=== PATIENT | female | born 1960 | race Caucasian/White ===

== ENCOUNTER 2016-11-02 12:18 | Emergency (ER) | payer OTHER ==
[~2016-11-02] VITALS: Ht 152.4 cm; Wt 89.2 kg
[2016-11-02 12:21] VITALS: Ht 152.4 cm; Wt 89.2 kg
[2016-11-02] MEDS ORDERED: KETOROLAC 30 MG INJ IM STA (15:29)
[2016-11-02] MEDS ORDERED: predniSONE 20 MG TAB PO ONE (15:30)
[2016-11-02] MEDS ORDERED: TRAM50TA2 PO (15:40)
[2016-11-02] MEDS ORDERED: NAPR-260 PO (15:40)
[2016-11-02] MEDS ORDERED: METF500T4 PO (15:41)
[2016-11-02] MEDS ORDERED: PRED20TA PO (15:41)
--- NOTE | 2016-11-02 15:51 | ERD ---
ER Documentation Chief Complaint Date/Time DATE: 11/02/16 TIME: 15:43 Chief Complaint BACK PAIN RAD TO RIGHT LEG HPI This 56-year-old female who presents to the emergency department today complaining of left-sided back pain that has been ongoing for many years but worse the past 2 weeks. Patient states she also has pain down the back of her leg. She will states that she has had some swelling in her ankle. 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 States she has taken Tylenol for the pain with limited improvement in symptoms. Patient is also requesting a medication refill on her Metformin. Denies any fevers or chills, loss of bowel or bladder control. ROS All systems reviewed and are negative except as per history of present illness. Medications Home Meds Active Scripts Metformin* (Glucophage*) 500 Mg Tab, 500 MG PO BID, #30 TAB Prov:KATERINE MCDANIEL PA-C 11/02/16 Prednisone* (Prednisone*) 20 Mg Tab, 40 MG PO DAILY for 4 Days, TAB Prov:KATERINE MCDANIEL PA-C 11/02/16 Naproxen* (Naprosyn*) 500 Mg Tablet, 500 MG PO BID Y for PAIN AND/OR INFLAMMATION, #30 TAB Prov:KATERINE MCDANIEL PA-C 11/02/16 Tramadol HCl (Tramadol HCl) 50 Mg Tablet, 50 MG PO Q4 Y for PAIN, #20 TAB Prov:KATERINE MCDANIEL PA-C 11/02/16 PMhx/Soc History of Surgery: Yes (APPY, LEFT OVARY TUMOR REMOVAL) Anesthesia Reaction: No Hx Neurological Disorder: No Hx Respiratory Disorders: No Hx Cardiac Disorders: Yes (HYPERLIPIDEMIA) Hx Psychiatric Problems: No Hx Miscellaneous Medical Probl: Yes (DM, SCIATIC NERVE PAIN ) Hx Alcohol Use: No Hx Substance Use: No Hx Tobacco Use: No Smoking Status: Never smoker Physical Exam Vitals Vital Signs Date Time Temp Pulse Resp B/P Pulse Ox O2 Delivery O2 Flow Rate FiO2 11/02/16 12:21 98.1 89 20 132/85 99 Physical Exam Const: No acute distress Head: Atraumatic Eyes: Normal Conjunctiva ENT: Normal External Ears, Nose and Mouth. Neck: Full range of motion..~ No meningismus. Resp: Clear to auscultation bilaterally Cardio: Regular rate and rhythm, no murmurs Skin: No petechiae or rashes Back: Lumbar and sacral spine midline tenderness and left-sided paraspinal tenderness. Negative straight leg raise. Pulses 2+. Distal neurovascularly intact. Ext: No cyanosis, or edema. No calf swelling or erythema or warmth. Neur: Awake and alert Psych: Normal Mood and Affect Results 24 hrs Current Medications Medications (Trade) Dose Ordered Sig/No Route PRN Reason Start Time Stop Time Status Last Admin Dose Admin Ketorolac Tromethamine (Toradol) 30 mg ONCE STAT IM 11/02/16 15:29 11/02/16 15:34 DC 11/02/16 15:42 Prednisone (Prednisone) 60 mg ONCE ONCE PO 11/02/16 15:30 11/02/16 15:34 DC 11/02/16 15:42 Procedures/MDM This is a 56-year-old female who presents to the emergency department today complaining of left-sided back pain that goes down the back of her leg. I did offer to obtain x-rays for the patient given that she has had ongoing back pain for several years that is now worse over the past 2 weeks however patient has declined at this time. Patient is afebrile and otherwise well-appearing. Low suspicion for cauda equina, abscess. Low suspicion for acute fracture dislocation. Patient symptoms at this time was consistent with back pain and sciatica. Patient did not have any calf swelling or erythema or warmth. I have low suspicion for DVT. I do not feel that she requires an ultrasound. She has no chest pain or shortness of breath and her oxygen saturation is 99%. She is not tachycardic. 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 Patient also had some tenderness along her medial tibia also likely a result of standing for long periods of time at her new job. Patient was given a Toradol injection as well as prednisone here in the emergency department. Patient does have a history of diabetes and I explained to her that the prednisone may increase her blood sugars. She has been instructed to watch her blood sugar closely. Patient did request a medication refill on her Metformin as she is running out. Patient will be given a prescription for tramadol, Naprosyn, short course of prednisone for home and a refill on her Metformin. She was instructed to elevate her limbs after work and apply ice and heat intermittently on her back. At this time the patient is stable for discharge and outpatient management. Patient should follow up with their PCP in the next 1-2 days. They may return to the emergency department sooner for any persistent or worsening of symptoms. Patient and daughter understood and agreed with the plan. Departure Diagnosis: Primary Impression: Back pain Back pain location: low back pain Chronicity: chronic Back pain laterality : left Sciatica presence: with sciatica Sciatica laterality: sciatica of left side Qualified Code: M54.42 - Chronic left-sided low back pain with left- sided sciatica Additional Impression: Medication refill Condition: Fair Patient Instructions: Taking Medicine Safely, Back Pain W/ Sciatica Referrals: your PCP Additional Instructions: Llame al doctor ZOË y ingrid armond GISELA PARA DENTRO DE 1-2 DAVIS.Dgale a la secretaria que nosotros le instruimos hacer esta gisela.Avise o llame si corral condicin se empeora antes de la gisela. Regresa aqui si peor o no mejor. Take tramadol for severe pain otherwise take Naprosyn or Tylenol or Motrin Apply ice and heat intermittently to back and hip. Elevate limbs after work Take prednisone as prescribed. Keep a close eye on blood sugar. Take metformin as prescribed and make an appoint with her primary care physician for follow-up KATERINE MCDANIEL PA-C Nov 02, 2016 15:51
== END 2016-11-02 16:13 | disposition home or self-care (01) ==
LOC: FTE 12:18
DX: M54.42 Lumbago with sciatica, left side (principal); E11.9 Type 2 diabetes mellitus without complications; Z76.0 Encounter for issue of repeat prescription; Z79.84 Long term (current) use of oral hypoglycemic drugs
CPT/HCPCS: 96372; J1885; J7512; Z7502

== ENCOUNTER 2017-02-25 09:59 | Emergency (ER) | payer OTHER ==
[~2017-02-25] VITALS: Ht 154.9 cm; Wt 82.0 kg
[~2017-02-25 09:59] MED LIST: METF500T4 PO; NAPR-260 PO; PRED20TA PO; TRAM50TA2 PO
[2017-02-25 10:02] VITALS: Ht 154.9 cm; Wt 82.0 kg
[2017-02-25] MEDS ORDERED: KETOROLAC 30 MG INJ IV STA (10:29)
[2017-02-25] MEDS ORDERED: SOD CHLORIDE 0.9% 1,000 ML IV STA (10:29)
[2017-02-25] MEDS ORDERED: ONDANSETRON 4 MG INJ IV STA (10:29)
[2017-02-25 10:51] LABS: ADD SCAN DIFF NO
[2017-02-25 11:03] LABS: BASOPHILS % 0.4 % (0.0-2.0); EOSINOPHILS # 0.1 10^3/ul (0.0-0.5); EOSINOPHILS % 1.7 % (0.0-7.0); HEMATOCRIT 43.3 % (37.0-47.0); HEMOGLOBIN 15.4 g/dl (12.0-16.0); LYMPHOCYTES # 1.7 10^3/ul (0.8-2.9); LYMPHOCYTES % 31.1 % (15.0-51.0); MEAN CORPUSCULAR HEMOGLOBIN 30.8 pg (29.0-33.0); MEAN CORPUSCULAR HGB CONC 35.6 g/dl (32.0-37.0); MEAN CORPUSCULAR VOLUME 86.6 fl (82.0-101.0); MEAN PLATELET VOLUME 10.8 fl (7.4-10.4); MONOCYTE # 0.4 10^3/ul (0.3-0.9); MONOCYTES % 7.9 % (0.0-11.0); NEUTROPHIL # 3.1 10^3/ul (1.6-7.5); NEUTROPHILS % 58.5 % (39.0-77.0); PLATELET COUNT 193 10^3/UL (140-415); RED CELL DISTRIBUTION WIDTH 11.9 % (11.5-14.5); WHITE BLOOD COUNT 5.3 10^3/ul (4.8-10.8)
[2017-02-25 11:11] LABS: ALBUMIN 4.7 g/dl (3.3-4.9); ALBUMIN/GLOBULIN RATIO 1.42; BILIRUBIN,INDIRECT 0.4 mg/dl (0-1.1); BILIRUBIN,TOTAL 0.4 mg/dl (0.2-1.3); CALCIUM 9.6 mg/dl (8.4-10.2); CREATININE 0.5 mg/dl (0.44-1.00); POTASSIUM 4.6 mmol/L (3.5-5.1)
[2017-02-25] MEDS ORDERED: INSULIN LISPRO 100 UNIT/ML VIAL SC STA (11:14)
--- NOTE | 2017-02-25 11:24 | RADRPT ---
PROCEDURE: CT Abdomen and Pelvis without contrast. CLINICAL INDICATION: Abdominal pain TECHNIQUE: CT scan of the abdomen and pelvis without contrast was performed on a multidetector hig h-resolution CT scanner. The patient was scanned without intravenous contrast. Coronal and sagittal reformatted images were obtained from the axial source images. Images were reviewed on a high-resol [employer] PACS workstation. The total exam CTDI equals 19.26 mGy and the total exam DLP equals 1051.96 m Gy-cm. One or more of the following dose reduction techniques were used: Automated exposure control. Adjustment of the mA and/or kV according to patient size. Use of iterative reconstruction technique. COMPARISON: None FINDINGS: CT abdomen: The lung bases are clear. The heart size is normal, without pericardial thickening or effusion. Th e liver is normal in size and density without focal mass or intrahepatic biliary dilatation. The sp naresh is normal in size and homogeneous in density. The stomach is partially collapsed, but is gross ly unremarkable. The pancreas as visualized is normal. The gallbladder is unremarkable. There is n o evidence for biliary dilatation. The adrenal glands are symmetric and normal. The kidneys are normal in size with no hydronephrosis. There is no urolithiasis. There is approxi mately 2.5 cm partially exophytic structure off of the lower pole left kidney. The aorta is of normal caliber. There is no retroperitoneal lymphadenopathy. The jacky hepatis robi on is clear. There are scattered diverticula in the descending and sigmoid colon. CT pelvis: The small bowel loops situated within the pelvis are unremarkable. The pelvic organs are normal. T he pelvic sidewalls and inguinal regions are clear. The sigmoid colon and rectum are remarkable for mild sigmoid diverticulosis. No mass, lymphadenopathy, or free fluid is seen. No acute inflammati on is seen. The surrounding osseous structures are remarkable for degenerative spondylosis of the s pine. No osteolytic or osteoblastic lesion is detected. IMPRESSION: 1. Approximately 2.5 cm solid lesion versus lobulation of the lower pole left kidney. Recommend CT abdomen with contrast per renal mass protocol for further evaluation. 2. Scattered diverticula in the descending and sigmoid colon without evidence of acute diverticulit is. RPTAT: BB .Jihan Le MD, MD Date Time Electronically viewed and signed by .Jihan Le MD, MD on 02/25/2017 11:24 .O/
[2017-02-25 11:25] LABS: ADD UMIC NO; UR ASCORBIC ACID NEGATIVE (NEGATIVE); UR BILIRUBIN (Dip) NEGATIVE (NEGATIVE); UR BLOOD (Dip) NEGATIVE (NEGATIVE); UR CLARITY CLEAR (CLEAR); UR COLOR STRAW (YELLOW); UR GLUCOSE (Dip) 3+ mg/dL (NEGATIVE); UR KETONES (Dip) NEGATIVE (NEGATIVE); UR LEUKOCYTE ESTERASE (Dip) NEGATIVE Leu/ul (NEGATIVE); UR NITRITE (Dip) NEGATIVE (NEGATIVE); UR SPECIFIC GRAVITY (Dip) 1.031 (1.003-1.030); UR TOTAL PROTEIN (Dip) NEGATIVE (NEGATIVE); UR UROBILINOGEN (Dip) NEGATIVE (NEGATIVE)
--- NOTE | 2017-02-25 13:38 | RADRPT ---
PROCEDURE: US Pelvis CLINICAL INDICATION: Pelvic pain. TECHNIQUE: Transabdominal and transvaginal sonographic evaluation of the pelvis was performed. COMPARISON: CT, 02/25/2017. FINDINGS: Myometrium is heterogeneous in echotexture with an anterior intramural uterine body fibroid measurin g up to 2.4 cm. Endometrium is normal in thickness without a focal abnormality. Normal flow to both ovaries. No adnexal mass. No free pelvic fluid. MEASUREMENTS: Uterus: 7.1 x 4.1 x 5.2 cm, anteverted. Endometrium: 0.3 cm. Right ovary size: 2.6 x 1.3 x 2.1 cm Left ovary size: 3.1 x 1.7 x 1.6 cm IMPRESSION: 1. Heterogeneous uterus with a single intramural uterine body fibroid identified. 2. Bilateral ovaries are within normal limits. RPTAT: EE .Dariel Montes De Oca MD, Date Time Electronically viewed and signed by .Dariel Montes De Oca MD, on 02/25/2017 13:42 .C/
[2017-02-25] MEDS ORDERED: IBUP-1542 PO (14:00)
--- NOTE | 2017-02-25 14:28 | ERD ---
ER Documentation Chief Complaint Date/Time DATE: 02/25/17 TIME: 14:21 Chief Complaint LOWER BACK PAIN RADAITING TO PELVIC AREA X 1 WEEK HPI This is a 56-year-old female presents to the ER with left-sided lower back pain that radiates into her pelvic area. Patient does admit to pain with urination however denies urinary frequency. Patient denies hematuria. She does admit to some nausea however denies vomiting or diarrhea. Pain is described as throbbing in quality is intermittent. Patient denies any fevers or chills. She denies any recent travel and there are no sick contacts at home. Patient is not currently sexually active and denies any vaginal discharge. Patient denies any urinary incontinence or bowel incontinence. She denies any saddle like anesthesia. Patient denies any trauma. ROS 12 point review of systems was done, all negative except per HPI. Medications Home Meds Active Scripts Ibuprofen* (Motrin*) 600 Mg Tab, 600 MG PO Q6, #30 TAB Prov:MERY PHELPS 02/25/17 Metformin* (Glucophage*) 500 Mg Tab, 500 MG PO BID, #30 TAB Prov:KATERINE MCDANIEL PA-C 11/02/16 Prednisone* (Prednisone*) 20 Mg Tab, 40 MG PO DAILY for 4 Days, TAB Prov:KATERINE MCDANIEL PA-C 11/02/16 Naproxen* (Naprosyn*) 500 Mg Tablet, 500 MG PO BID Y for PAIN AND/OR INFLAMMATION, #30 TAB Prov:KATERINE MCDANIEL PA-C 11/02/16 Tramadol HCl (Tramadol HCl) 50 Mg Tablet, 50 MG PO Q4 Y for PAIN, #20 TAB Prov:KATERINE MCDANIEL PA-C 11/02/16 PMhx/Soc History of Surgery: Yes (APPY, LEFT OVARY TUMOR REMOVAL) Anesthesia Reaction: No Hx Neurological Disorder: No Hx Respiratory Disorders: No Hx Cardiac Disorders: Yes (HYPERLIPIDEMIA) Hx Psychiatric Problems: No Hx Miscellaneous Medical Probl: Yes (DM, SCIATIC NERVE PAIN ) Hx Alcohol Use: No Hx Substance Use: No Hx Tobacco Use: No Physical Exam Vitals Physical Exam GENERAL: The patient is well developed and appropriate for usual state of health , in no apparent distress. HEENT: Atraumatic. CHEST: Clear to auscultation bilaterally. There are no rales, wheezes or rhonchi. HEART: Regular rate and rhythm. No murmurs, clicks, rubs or gallops. ABDOMEN: Soft, nontender and nondistended. Good bowel sounds. No rebound or guarding. No gross peritonitis. No gross organomegaly or masses. No Centeno sign or McBurney point tenderness. Patient has pelvic tenderness. BACK: No midline or flank tenderness. EXTREMITIES: Normal range of motion to bilateral lower extremities, neurovascularly intact NEURO: Alert and oriented. SKIN: There is no apparent rash or petechia. The skin is warm and dry. Results 24 hrs Laboratory Tests Test 02/25/17 10:40 White Blood Count 5.310^3/ul Red Blood Count 5.0010^6/ul Hemoglobin 15.4g/dl Hematocrit 43.3% Mean Corpuscular Volume 86.6fl Mean Corpuscular Hemoglobin 30.8pg Mean Corpuscular Hemoglobin Concent 35.6g/dl Red Cell Distribution Width 11.9% Platelet Count 01886^3/UL Mean Platelet Volume 10.8fl Neutrophils % 58.5% Lymphocytes % 31.1% Monocytes % 7.9% Eosinophils % 1.7% Basophils % 0.4% Nucleated Red Blood Cells % 0.0/100WBC Neutrophils # 3.110^3/ul Lymphocytes # 1.710^3/ul Monocytes # 0.410^3/ul Eosinophils # 0.110^3/ul Basophils # 0.010^3/ul Nucleated Red Blood Cells # 0.010^3/ul Urine Color STRAW Urine Clarity CLEAR Urine pH 5.0 Urine Specific [place] 1.031 Urine Ketones NEGATIVEmg/dL Urine Nitrite NEGATIVEmg/dL Urine Bilirubin NEGATIVEmg/dL Urine Urobilinogen NEGATIVEmg/dL Urine Leukocyte Esterase NEGATIVELeu/ul Urine Hemoglobin NEGATIVEmg/dL Urine Glucose 3+mg/dL Urine Total Protein NEGATIVEmg/dl Sodium Level 134mmol/L Potassium Level 4.6mmol/L Chloride Level 97mmol/L Carbon Dioxide Level 28mmol/L Anion Gap 14 Blood Urea Nitrogen 13mg/dl Creatinine 0.50mg/dl Glucose Level 466mg/dl Calcium Level 9.6mg/dl Total Bilirubin 0.4mg/dl Direct Bilirubin 0.00mg/dl Indirect Bilirubin 0.4mg/dl Aspartate Amino Transf (AST/SGOT) 28IU/L Alanine Aminotransferase (ALT/SGPT) 38IU/L Alkaline Phosphatase 219IU/L Total Protein 8.0g/dl Albumin 4.7g/dl Globulin 3.30g/dl Albumin/Globulin Ratio 1.42 Lipase 332U/L Current Medications Medications (Trade) Dose Ordered Sig/No Route PRN Reason Start Time Stop Time Status Last Admin Dose Admin Sodium Chloride (NS) 1,000 ml @ 1,000 mls/hr Q1H STAT IV 02/25/17 10:29 02/25/17 11:28 DC 02/25/17 10:49 Ondansetron HCl (Zofran Inj) 4 mg ONCE STAT IV 02/25/17 10:29 02/25/17 10:32 DC 02/25/17 10:49 Ketorolac Tromethamine (Toradol) 30 mg ONCE STAT IV 02/25/17 10:29 02/25/17 10:32 DC 02/25/17 10:49 Insulin Human Lispro (Humalog) 10 unit ONCE STAT SC 02/25/17 11:14 02/25/17 11:16 DC 02/25/17 11:57 [id number] [address] [address] Radiology Main Line: [phone] DIAGNOSTIC IMAGING REPORT Patient: ZAC CAMP : 1960 Age: 56 Sex: F [id number] DOS: 02/25/17 1029 Ordering MD: MERY PHELPS PA-C Location: [facility] Room/Bed: PROCEDURE: CT Abdomen and Pelvis without contrast. CLINICAL INDICATION: Abdominal pain TECHNIQUE: CT scan of the abdomen and pelvis without contrast was performed on a multidetector high-resolution CT scanner. The patient was scanned without intravenous contrast. Coronal and sagittal reformatted images were obtained from the axial source images. Images were reviewed on a high-resolution PACS workstation. The total exam CTDI equals 19.26 mGy and the total exam DLP equals 1051.96 mGy-cm. One or more of the following dose reduction techniques were used: Automated exposure control. Adjustment of the mA and/or kV according to patient size. Use of iterative reconstruction technique. COMPARISON: None FINDINGS: CT abdomen: The lung bases are clear. The heart size is normal, without pericardial thickening or effusion. The liver is normal in size and density without focal mass or intrahepatic biliary dilatation. The spleen is normal in size and homogeneous in density. The stomach is partially collapsed, but is grossly unremarkable. The pancreas as visualized is normal. The gallbladder is unremarkable. There is no evidence for biliary dilatation. The adrenal glands are symmetric and normal. The kidneys are normal in size with no hydronephrosis. There is no urolithiasis. There is approximately 2.5 cm partially exophytic structure off of the lower pole left kidney. The aorta is of normal caliber. There is no retroperitoneal lymphadenopathy. The jacky hepatis region is clear. There are scattered diverticula in the descending and sigmoid colon. CT pelvis: The small bowel loops situated within the pelvis are unremarkable. The pelvic organs are normal. The pelvic sidewalls and inguinal regions are clear. The sigmoid colon and rectum are remarkable for mild sigmoid diverticulosis. No mass, lymphadenopathy, or free fluid is seen. No acute inflammation is seen. The surrounding osseous structures are remarkable for degenerative spondylosis of the spine. No osteolytic or osteoblastic lesion is detected. IMPRESSION: 1. Approximately 2.5 cm solid lesion versus lobulation of the lower pole left kidney. Recommend CT abdomen with contrast per renal mass protocol for further evaluation. 2. Scattered diverticula in the descending and sigmoid colon without evidence of acute diverticulitis. RPTAT: BB .Jihan Le MD, Date Time Electronically viewed and signed by .Jihan Le MD, MD on 02/25/2017 11:24 .O/ CC: MERY PHELPS [address] [place] [address] Radiology Main Line: [phone] DIAGNOSTIC IMAGING REPORT Patient: ZAC CAMP : 1960 Age: 56 Sex: F MR #: [id number] DOS: 02/25/17 0000 Ordering MD: MERY PHELPS PA-C Location: [facility] Room/Bed: PROCEDURE: US Pelvis CLINICAL INDICATION: Pelvic pain. TECHNIQUE: Transabdominal and transvaginal sonographic evaluation of the pelvis was performed. COMPARISON: CT, 02/25/2017. FINDINGS: Myometrium is heterogeneous in echotexture with an anterior intramural uterine body fibroid measuring up to 2.4 cm. Endometrium is normal in thickness without a focal abnormality. Normal flow to both ovaries. No adnexal mass. No free pelvic fluid. MEASUREMENTS: Uterus: 7.1 x 4.1 x 5.2 cm, anteverted. Endometrium: 0.3 cm. Right ovary size: 2.6 x 1.3 x 2.1 cm Left ovary size: 3.1 x 1.7 x 1.6 cm IMPRESSION: 1. Heterogeneous uterus with a single intramural uterine body fibroid identified. 2. Bilateral ovaries are within normal limits. RPTAT: EE .Dariel Montes De Oca MD, MD Date Time Electronically viewed and signed by .Dariel Montes De Oca MD, on 02/25/2017 13:42 .C/ CC: MERY PHELPS Procedures/MDM Differential Diagnosis includes but is not limited to back strain, vertebral fracture, epidural abscess, cauda equina, herniated disc, AAA rupture, kidney stones, UTI, pyelonephritis, acute abdomen, PID, fibroid, endometriosis. Patient was stable throughout the ER because she was found to have an elevation in her blood glucose to 466, patient was given 10 units of insulin. Patient however was asymptomatic throughout the ER course, had admitted to not taking medication for over a week. There is no evidence of diabetic ketoacidosis or hyperosmolar coma. This is a 56-year-old female presents to the ER with lower pelvic pain and left- sided back pain. Patient was found to have a fibroid. Suspicion for urinary tract infection, pyelonephritis, kidney stone is low. Patient is afebrile and well-appearing and her lab work is negative for leukocytosis, electrolyte abnormality, urinary tract infection. Patient will be sent home with ibuprofen for the pain. In regards to patient's back pain I doubt that this is cauda equina, epidural abscess or other life-threatening emergency. Patient has normal range of motion of bilateral extremities and is neurovascularly intact. She is to follow-up with her primary care doctor within 1-2 days return to ER sooner if symptoms worsen. My medical decision making shared with the patient she understands and agrees with plan. Departure Diagnosis: Primary Impression: Fibroid Condition: Stable Patient Instructions: Uterine Fibroids Additional Instructions: Call your primary care doctor TOMORROW for an appointment during the next 1-2 days.See the doctor sooner or return here if your condition worsens before your appointment time. MERY PHELPS Feb 25, 2017 14:28
== END 2017-02-25 14:23 | disposition home or self-care (01) ==
LOC: FTE 09:59
DX: D25.9 Leiomyoma of uterus, unspecified (principal); E11.9 Type 2 diabetes mellitus without complications; R11.0 Nausea; R10.2 Pelvic and perineal pain; Z79.84 Long term (current) use of oral hypoglycemic drugs
CPT/HCPCS: 74176; 76830; 76856; 80053; 81003; 83690; 85025; J1815; J1885; J2405; J7030; 36415; 96372; 96374; 96375

== ENCOUNTER 2017-06-01 16:15 | Emergency (ER) | END 2017-06-01 19:04 | disposition home or self-care (01) | DX: S49.92XA Unspecified injury of left shoulder and upper arm, initial encounter (principal); E11.9 Type 2 diabetes mellitus without complications; I10 Essential (primary) hypertension; W01.0XXA Fall on same level from slipping, tripping and stumbling without subsequent striking against object, initial encounter; Y92.9 Unspecified place or not applicable; Z79.84 Long term (current) use of oral hypoglycemic drugs | CPT/HCPCS: 71010; 73030; 96372; J1885; Z7502 ==

== ENCOUNTER 2017-07-29 10:37 | Emergency (ER) | payer OTHER ==
[~2017-07-29] VITALS: Wt 77.4 kg
[~2017-07-29 10:37] MED LIST changes: +IBUP-1542 PO
[2017-07-29] MEDS ORDERED: HYDROCODONE/APAP (5/325) TAB PO ONE (13:00)
--- NOTE | 2017-07-29 13:26 | ERD ---
ER Documentation Chief Complaint Chief Complaint [facility] NO [facility], LIMITED ROM ON R ARM HPI This is a 56-year-old female presents the emergency department today complaining of right-sided arm pain after sustaining a mechanical fall earlier today. Patient states that she went her usual walk when she tripped and fell on uneven sidewalk. States she has not taken any medication for the pain. States that she landed with her arm outstretched. Denies hitting her head or loss of consciousness. ROS All systems reviewed and are negative except as per history of present illness. Medications Home Meds Active Scripts Naproxen* (Naprosyn*) 500 Mg Tablet, 500 MG PO BID Y for PAIN AND/OR INFLAMMATION, #30 TAB Prov:KATERINE MCDANIEL PA-C 07/29/17 Hydrocodone/Acetaminophen ([place] 5-325 Tablet) 1 Each Tablet, 1 TAB PO Q6H Y for PAIN, #20 TAB Prov:KATERINE MCDANIEL PA-C 07/29/17 Tramadol HCl (Tramadol HCl) 50 Mg Tablet, 50 MG PO Q4 Y for PAIN, #10 TAB Prov:YULISA PANG NP 06/01/17 Ibuprofen* (Motrin*) 600 Mg Tab, 600 MG PO Q6, #30 TAB Prov:YULISA PANG NP 06/01/17 Ibuprofen* (Motrin*) 600 Mg Tab, 600 MG PO Q6, #30 TAB Prov:MERY PHELPS 02/25/17 Metformin* (Glucophage*) 500 Mg Tab, 500 MG PO BID, #30 TAB Prov:KATERINE MCDANIEL PA-C 11/02/16 Prednisone* (Prednisone*) 20 Mg Tab, 40 MG PO DAILY for 4 Days, TAB Prov:KATERINE MCDANIEL PA-C 11/02/16 Naproxen* (Naprosyn*) 500 Mg Tablet, 500 MG PO BID Y for PAIN AND/OR INFLAMMATION, #30 TAB Prov:KATERINE MCDANILE PA-C 11/02/16 Tramadol HCl (Tramadol HCl) 50 Mg Tablet, 50 MG PO Q4 Y for PAIN, #20 TAB Prov:KATERINE MCDANIEL PA-C 11/02/16 Allergies Allergies: Coded Allergies: No Known Allergy (Unverified , 06/01/17) PMhx/Soc History of Surgery: Yes (APPY, LEFT OVARY TUMOR REMOVAL) Anesthesia Reaction: No Hx Neurological Disorder: No Hx Respiratory Disorders: No Hx Cardiac Disorders: Yes (HYPERLIPIDEMIA, HTN) Hx Psychiatric Problems: No Hx Miscellaneous Medical Probl: Yes (DM, SCIATIC NERVE PAIN ) Hx Alcohol Use: No Hx Substance Use: No Hx Tobacco Use: No Smoking Status: Never smoker Physical Exam Vitals Vital Signs Date Time Temp Pulse Resp B/P Pulse Ox O2 Delivery O2 Flow Rate FiO2 07/29/17 10:47 98.5 89 18 147/89 98 Physical Exam Const: NAD Head: Atraumatic Eyes: Normal Conjunctiva ENT: Normal External Ears, Nose and Mouth. Neck: Full range of motion..~ No meningismus. Resp: Clear to auscultation bilaterally Cardio: Regular rate and rhythm, no murmurs Abd: Soft, non tender, non distended. Normal bowel sounds Skin: No petechiae or rashes. No Abrasions MSk: Right arm with no obvious deformity. No effusion. Diffusely tender to palpation. Unable to assess range of motion secondary to pain. Pulses 2+. Distal neurovascularly intact. Neur: Awake and alert Psych: Normal Mood and Affect Results 24 hrs Current Medications Medications (Trade) Dose Ordered Sig/No Route PRN Reason Start Time Stop Time Status Last Admin Dose Admin Acetaminophen/ Hydrocodone Bitart ([place] (5/325)) 1 tab ONCE ONCE PO 07/29/17 13:00 07/29/17 13:01 DC 07/29/17 12:42 Morphine Sulfate (morphine) 2 mg ONCE STAT IM 07/29/17 15:19 07/29/17 15:20 DC 07/29/17 15:31 DIAGNOSTIC IMAGING REPORT Patient: AZC CAMP : 1960 Age: 56 Sex: F MR #: [id number] DOS: 07/29/17 0000 Ordering MD: KATERINE MCDANIEL PA-C Location: [facility] Room/Bed: PROCEDURE: XR Right Elbow. CLINICAL INDICATION: Trauma, injury TECHNIQUE: AP, lateral and oblique views of the elbow performed. COMPARISON: None. FINDINGS: There is normal mineralization and alignment. There is a comminuted fracture involving the radial head and neck. This extends to the proximal articular surface. A large anterior and posterior fat pad sign is present. There is no significant joint space narrowing. The soft tissues are unremarkable. IMPRESSION: 1. Comminuted fracture involving the radial head and neck that extends to the proximal articular surface. 2. Large anterior and posterior fat pad sign is present. RPTAT:AAJJ Deniz Kamara Physician Date Time Electronically viewed and signed by Deniz Kamara Physician on 07/29/2017 14: 20 MC/ CC: KATERINE MCDANIEL PA-C DIAGNOSTIC IMAGING REPORT Patient: ZAC CAMP : 1960 Age: 56 Sex: F MR #: [id number] DOS: 07/29/17 0000 Ordering MD: KATERINE MCDANIEL PA-C Location: [facility] Room/Bed: PROCEDURE: XR Forearm. CLINICAL INDICATION: trauma, fall TECHNIQUE: AP and lateral views of the right forearm were obtained. COMPARISON: No prior studies are available for comparison. FINDINGS: There is normal mineralization and alignment. Next low There is a subtle nondisplaced ulnar styloid avulsion fracture. A fracture is also seen involving the radial neck. No additional fractures are clearly seen. The soft tissues are unremarkable. IMPRESSION: 1. Radial neck fracture. 2. Subtle nondisplaced ulnar styloid avulsion fracture. RPTAT:AAJJ Physician Charlie Date Time Electronically viewed and signed by Physician Charlie on 07/29/2017 14: 19 MC/ CC: KATERINE MCDANIEL PA-C DIAGNOSTIC IMAGING REPORT Patient: ZAC CAMP : 1960 Age: 56 Sex: F MR #: [id number] DOS: 07/29/17 0000 Ordering MD: KATERINE MCDANIEL PA-C Location: [facility] Room/Bed: PROCEDURE: Right hand x-ray CLINICAL INDICATION: trauma, fall TECHNIQUE: AP, lateral and oblique views of the hand were obtained. COMPARISON: None FINDINGS: There is normal mineralization. There is a subtle nondisplaced ulnar styloid avulsion fracture. No additional fractures are clearly seen. There are no significant degenerative changes. There is no significant soft tissue swelling. IMPRESSION: Subtle nondisplaced ulnar styloid avulsion fracture. Otherwise, no significant abnormalities are identified. RPTAT:AAJJ Physician Charlie Date Time Electronically viewed and signed by Deniz Kamara Physician on 07/29/2017 14: 21 MC/ CC: KATERINE MCDANIEL PA-C DIAGNOSTIC IMAGING REPORT Patient: ZAC CAMP : 1960 Age: 56 Sex: F MR #: [id number] DOS: 07/29/17 0000 Ordering MD: KATERINE MCDANIEL PA-C Location: [facility] Room/Bed: PROCEDURE: XR Humerus. CLINICAL INDICATION: Pain following injury. TECHNIQUE: AP and lateral views of the left humerus were performed. COMPARISON: None. FINDINGS: There is normal osseous mineralization and alignment. No fracture or osseous lesion is identified. The joint spaces appear well preserved. The soft tissues are unremarkable. IMPRESSION: Unremarkable left humerus. RPTAT: HH .Damaris Ann MD, MD Date Time Electronically viewed and signed by .Damaris Ann MD, MD on 07/29/2017 14 :18 .G/ CC: KATERINE MCDANIEL PA-C DIAGNOSTIC IMAGING REPORT Patient: ZAC CAMP : 1960 Age: 56 Sex: F MR #: [id number] DOS: 07/29/17 0000 Ordering MD: KATERINE MCDANIEL PA-C Location: [facility] Room/Bed: PROCEDURE: XR Shoulder. CLINICAL INDICATION: Right shoulder pain following injury TECHNIQUE: Two views of the right shoulder are available for review. COMPARISON: None available FINDINGS: The osseous structures demonstrate normal alignment and mineralization. No acute fracture or dislocation is seen. The acromioclavicular, acromiohumeral, glenohumeral joint spaces are well preserved. There are small calcific densities along the superior lateral humeral head. No soft tissue abnormalities appreciated. The visualized portion of the right lung is clear. IMPRESSION: 1. Calcific tendonitis. 2. No acute fracture or dislocation is seen. RPTAT: HH .Damaris Ann MD, MD Date Time Electronically viewed and signed by .Damaris Ann MD, MD on 07/29/2017 14 :17 .G/ CC: KATERINE MCDANIEL PA-C DIAGNOSTIC IMAGING REPORT Patient: ZAC CAMP : 1960 Age: 56 Sex: F MR #: [id number] DOS: 07/29/17 0000 Ordering MD: KATERINE MCDANIEL PA-C Location: [facility] Room/Bed: PROCEDURE: XR right humerus CLINICAL INDICATION: Trauma TECHNIQUE: AP and lateral portable views of the right humerus COMPARISON: Right elbow radiograph series 07/29/2017 FINDINGS: Small ossifications/calcifications near the proximal right humerus probably are secondary to calcific tendonitis versus loose bodies. Small calcification/ ossification near the undersurface of the distal right clavicle seen on one view only could be ligamentous or artifact. The right radial head/neck comminuted fracture and right elbow joint effusion are seen better on the right elbow series from the same date. No evidence of right humerus acute fracture. IMPRESSION: 1. The right radial head/neck comminuted fracture in right elbow joint effusion are seen better on the right elbow series from the same date 2. No evidence of right humerus acute fracture RPTAT: TT Dev De Santiago Physician Date Time Electronically viewed and signed by Dev De Santiago, Physician on 2016 15:24 JS/ CC: KATERINE MCDANIEL PA-C Procedures/MDM This is a right handed 56-year-old female who presents the emergency department today complaining of arm pain after sustaining a mechanical fall earlier today she tripped on uneven sidewalk during her usual morning walk. Patient denied hitting her head or loss of consciousness and I do not feel that she requires a head CT scan at this time. Low suspicion for acute hemorrhage, mass, abscess, meningitis. Patient was complaining of diffuse right-sided arm pain and I was unable to assess range of motion secondary to her pain and therefore did take multiple images. Radiology report images of the right shoulder shows calcific tendinitis. There is no acute fracture dislocation seen Images of the right humerus show the right radial head and neck comminuted fracture right elbow joint effusion. There is no evidence of right humerus acute fracture. There are small ossifications near the right proximal humerus probably secondary to calcific tendinitis versus loose bodies. Images of the right elbow is a comminuted fracture involving the radial head and neck that extends to the proximal articular surface. There is a large anterior and posterior fat pad sign present and soft tissues are unremarkable Images of the right forearm show a radial neck fracture. There is a subtle nondisplaced ulnar styloid avulsion fracture. Images of the right hand a subtle nondisplaced ulnar styloid avulsion fracture. 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 Still complaining of pain and therefore was given IM morphine. Placed in a splint and sling. She was distal neurovascularly intact pre-and post splint application. Symptoms ast this time is consistent with radial head fracture and ulnar styloid avulsion fracture. Given a prescription for [place], Naprosyn, for home. At this time the patient is stable for discharge and outpatient management. Patient should follow up with their PCP in the next 1-2 days. They may return to the emergency department sooner for any persistent or worsening of symptoms. Patient understood and agreed with the plan. Departure Diagnosis: Primary Impression: Radial fracture Encounter type: initial encounter Radius location: head Fracture type: closed Fracture alignment: displaced Laterality: right Qualified Code: S52.121A - Closed displaced fracture of head of right radius, initial encounter Additional Impression: Ulna fracture Encounter type: initial encounter Ulna location: styloid process Fracture type: closed Fracture alignment: nondisplaced Laterality: right Qualified Code: S52.614A - Closed nondisplaced fracture of styloid process of right ulna , initial encounter Condition: Fair KATERINE MCDANIEL PA-C Jul 29, 2017 13:26
--- NOTE | 2017-07-29 14:17 | RADRPT ---
PROCEDURE: XR Shoulder. CLINICAL INDICATION: Right shoulder pain following injury TECHNIQUE: Two views of the right shoulder are available for review. COMPARISON: None available FINDINGS: The osseous structures demonstrate normal alignment and mineralization. No acute fracture or disloc ation is seen. The acromioclavicular, acromiohumeral, glenohumeral joint spaces are well preserved. There are small calcific densities along the superior lateral humeral head. No soft tissue abnormal ities appreciated. The visualized portion of the right lung is clear. IMPRESSION: 1. Calcific tendonitis. 2. No acute fracture or dislocation is seen. RPTAT: HH .Damaris Ann MD, MD Date Time Electronically viewed and signed by .Damaris Ann MD, on 07/29/2017 14:17 .G/
--- NOTE | 2017-07-29 14:18 | RADRPT ---
PROCEDURE: XR Humerus. CLINICAL INDICATION: Pain following injury. TECHNIQUE: AP and lateral views of the left humerus were performed. COMPARISON: None. FINDINGS: There is normal osseous mineralization and alignment. No fracture or osseous lesion is identified. T he joint spaces appear well preserved. The soft tissues are unremarkable. IMPRESSION: Unremarkable left humerus. RPTAT: HH .Damaris Ann MD, MD Date Time Electronically viewed and signed by .Damaris Ann MD, on 07/29/2017 14:18 .G/
--- NOTE | 2017-07-29 14:19 | RADRPT ---
PROCEDURE: XR Forearm. CLINICAL INDICATION: trauma, fall TECHNIQUE: AP and lateral views of the right forearm were obtained. COMPARISON: No prior studies are available for comparison. FINDINGS: There is normal mineralization and alignment. Next low There is a subtle nondisplaced ulnar styloid avulsion fracture. A fracture is also seen involving the radial neck. No additional fractures are clearly seen. The soft tissues are unremarkable. IMPRESSION: 1. Radial neck fracture. 2. Subtle nondisplaced ulnar styloid avulsion fracture. RPTAT:AAJJ Deniz Kamara Physician Date Time Electronically viewed and signed by Deniz Kamara Physician on 07/29/2017 14:19 MACK/
--- NOTE | 2017-07-29 14:20 | RADRPT ---
PROCEDURE: XR Right Elbow. CLINICAL INDICATION: Trauma, injury TECHNIQUE: AP, lateral and oblique views of the elbow performed. COMPARISON: None. FINDINGS: There is normal mineralization and alignment. There is a comminuted fracture involving the radial head and neck. This extends to the proximal itzel cular surface. A large anterior and posterior fat pad sign is present. There is no significant joint space narrowing. The soft tissues are unremarkable. IMPRESSION: 1. Comminuted fracture involving the radial head and neck that extends to the proximal articular corral rface. 2. Large anterior and posterior fat pad sign is present. RPTAT:AAJJ Physician Charlie Date Time Electronically viewed and signed by Deniz Kamara Physician on 07/29/2017 14:20 MACK/
--- NOTE | 2017-07-29 14:21 | RADRPT ---
PROCEDURE: Right hand x-ray CLINICAL INDICATION: trauma, fall TECHNIQUE: AP, lateral and oblique views of the hand were obtained. COMPARISON: None FINDINGS: There is normal mineralization. There is a subtle nondisplaced ulnar styloid avulsion fracture. No additional fractures are clearly seen. There are no significant degenerative changes. There is no significant soft tissue swelling. IMPRESSION: Subtle nondisplaced ulnar styloid avulsion fracture. Otherwise, no significant abnormalities are layton ntified. RPTAT:AAJJ Physician Charlie Date Time Electronically viewed and signed by Deniz Kamara Physician on 07/29/2017 14:21 /
[2017-07-29] MEDS ORDERED: morphine 2 MG INJ IM STA (15:19)
--- NOTE | 2017-07-29 15:25 | RADRPT ---
PROCEDURE: XR right humerus CLINICAL INDICATION: Trauma TECHNIQUE: AP and lateral portable views of the right humerus COMPARISON: Right elbow radiograph series 07/29/2017 FINDINGS: Small ossifications/calcifications near the proximal right humerus probably are secondary to calcifi c tendonitis versus loose bodies. Small calcification/ossification near the undersurface of the dist al right clavicle seen on one view only could be ligamentous or artifact. The right radial head/neck comminuted fracture and right elbow joint effusion are seen better on the right elbow series from the same date. No evidence of right humerus acute fracture. IMPRESSION: 1. The right radial head/neck comminuted fracture in right elbow joint effusion are seen better on the right elbow series from the same date 2. No evidence of right humerus acute fracture RPTAT: TT Physician Daisy Date Time Electronically viewed and signed by Dev De Santiago Physician on 07/29/2017 15:24 IVA/
[2017-07-29] MEDS ORDERED: HYDR-906 PO (15:46)
[2017-07-29] MEDS ORDERED: NAPR-260 PO (15:47)
[2017-07-29 15:55] VITALS: BP 148/76; PULSE 77; RESP 18; TEMP 98.5
== END 2017-07-29 15:57 | disposition home or self-care (01) ==
LOC: FTE 10:37
DX: S52.121A Displaced fracture of head of right radius, initial encounter for closed fracture (principal); S52.614A Nondisplaced fracture of right ulna styloid process, initial encounter for closed fracture; I10 Essential (primary) hypertension; W01.0XXA Fall on same level from slipping, tripping and stumbling without subsequent striking against object, initial encounter; Y92.9 Unspecified place or not applicable
CPT/HCPCS: 29105; 73030; 73060; 73080; 73090; 73130; 96372; J2270; Z7502; Z7610

== ENCOUNTER 2018-06-27 11:41 | Emergency (ER) | END 2018-06-27 13:26 | disposition home or self-care (01) ==

== ENCOUNTER 2018-07-23 09:31 | Emergency (ER) | END 2018-07-23 10:28 | disposition home or self-care (01) ==